=== PATIENT | female | born 1940 | race Caucasian/White ===

== ENCOUNTER 2019-08-10 19:52 | Emergency (ER) | payer MEDICARE ==
[~2019-08-10] VITALS: Ht 147.3 cm; Wt 50.9 kg
[~2019-08-10 19:52] MED LIST: ANALPRAM HC 2.530 GM RC; BENEFIBER1 PKT PO; COLACE100 MG PO; FLAGYL250 MG PO; HCTZ25 MG PO; HYDROCODON-ACE1 EAC7 PO; LIDOCAINE 5 % O35 GM TOPICAL; LISINOPRIL10 MG PO; MIRALAX17 GM PO; ULTRAM50 MG PO; VICODIN; VITAMIN D3400 UNI1 PO
[2019-08-10 19:56] VITALS: Ht 147.3 cm; Wt 50.9 kg
[2019-08-10] MEDS ORDERED: CATAPRES0.1 MG PO (19:58)
[2019-08-10 20:14] LABS: BASOPHILS 0.4 % (0-2); EOSINOPHILS 1.4 % (0-7); HEMATOCRIT 40.1 % (36.0-48.0); HEMOGLOBIN 13.1 g/dL (12-16); LYMPHOCYTES 40.7 % (15-50); MCH 28.8 pg (26.0-34.0); MCHC 32.7 g/dL (31.0-37.0); MCV 88.1 fL (80.0-100.0); MONOCYTES 9.1 % (2-11); NEUTROPHILS 48.4 % (40-80); PLATELET COUNT 143 10x3/uL (130-400); RBC 4.55 10x6/uL (4.00-5.40)
[2019-08-10 20:23] LABS: APTT 27.9 SECONDS (22.8-39.4); INR 0.97 (0.85-1.17); PROTIME 12.4 SECONDS (11.6-15.0)
[2019-08-10 20:30] LABS: CALC OSMOLALITY 287 mosm/kg (275-300); CALCIUM 9.3 mg/dL (8.5-10.1); CARBON DIOXIDE 33.3 mmol/L (21.0-32.0); CHLORIDE - SERUM 102 mmol/L (98-107); CREATININE - SERUM 0.7 mg/dL (0.6-1.3); GLUCOSE 102 mg/dL (74-106); POTASSIUM - SERUM 3.1 mmol/L (3.5-5.1); SODIUM 143 mmol/L (136-145); UREA NITROGEN 20 mg/dL (7-18); eGFR NON AFRICAN AMERICAN 85 mL/min (90-120)
[2019-08-10 20:41] LABS: ALKALINE PHOSPHATASE 61 U/L (46-116); ALT (SGPT) 24 U/L (10-68); BILIRUBIN - TOTAL 0.31 mg/dL (0.2-1.3); CKMB 1.3 U/L (0.0-3.6); CREATINE KINASE 79 UL (21-215); MAGNESIUM - SERUM 2.4 mg/dL (1.8-2.4); PROTEIN - SERUM 6.7 g/dL (6.4-8.2)
[2019-08-10 20:45] LABS: TROPONIN-I < 0.017 ng/mL (0.000-0.060)
[2019-08-10 20:59] LABS: ALBUMIN 3.8 g/dL (3.4-5.0)
[2019-08-10 21:35] VITALS: BP 136/67
== END 2019-08-10 21:35 | disposition home or self-care (01) ==
LOC: D.ER 19:52
PROVIDERS: Family Medicine
DX: E87.6 Hypokalemia (principal); I49.3 Ventricular premature depolarization; I10 Essential (primary) hypertension

== ENCOUNTER → 2020-05-13 09:24 | Outpatient (CLI) | payer OTHER ==
[2019-08-10 19:56] VITALS: BMI 23.4
[~2020-05-13 09:24] MED LIST changes: +CATAPRES0.1 MG PO
== END | disposition home or self-care (01) ==
LOC: D.RAD 09:24
PROVIDERS: ATTEND Internal Medicine Gastroenterology
DX: R19.4 Change in bowel habit (principal); K59.00 Constipation, unspecified